=== PATIENT | female | born 1955 | race Caucasian/White ===

== ENCOUNTER 2017-03-25 17:26 | Emergency (ER) | payer OTHER ==
[~2017-03-25] VITALS: Ht 162.6 cm; Wt 80.7 kg
[2017-03-25 18:47] VITALS: BP 146/95
== END 2017-03-25 19:53 | disposition home or self-care (01) ==
LOC: ER 17:33
DX: S93.402A Sprain of unspecified ligament of left ankle, initial encounter (principal); F17.210 Nicotine dependence, cigarettes, uncomplicated; Z88.0 Allergy status to penicillin; Z88.1 Allergy status to other antibiotic agents; W01.0XXA Fall on same level from slipping, tripping and stumbling without subsequent striking against object, initial encounter; Y93.89 Activity, other specified; Y92.89 Other specified places as the place of occurrence of the external cause; Y99.8 Other external cause status
CPT/HCPCS: 29515; 73610

== ENCOUNTER 2021-05-30 15:15 | Inpatient (IN) | payer OTHER, MEDICAID ==
[~2021-05-30] VITALS: Ht 160 cm; Wt 88.5 kg
[~2021-05-30 15:15] MED LIST: FLUT110A INH; MET25T GT; MUPI2OIN10 EACHNOSTRI; PERCOT PO; QUET50TA PO
[2021-05-30] MEDS ORDERED: methylPREDNISolone SOD SUCC 125 MG/2 ML VL ONE (15:22)
[2021-05-30] MEDS ORDERED: ETOMIDATE (2MG/ML) 20ML VIAL IV ONE (15:30)
[2021-05-30] MEDS ORDERED: ALBUTEROL SULF 2.5 MG/0.5ML(0.5%) NEB SOLN NEB ONE (15:30)
[2021-05-30] MEDS ORDERED: IPRATROPIUM BROM 0.5 MG/2.5ML INH SOL NEB ONE (15:30)
[2021-05-30] MEDS ORDERED: ROCURONIUM 10MG/ML 10ML VIAL IV ONE (15:30)
[2021-05-30] MEDS ORDERED: methylPREDNISolone SOD SUCC 125 MG/2 ML VL IV ONE (15:30)
[2021-05-30] MEDS ORDERED: MIDAZOLAM DRIP 50 mg/50mL 50 ML IV ONE (15:39)
[2021-05-30] MEDS: MIDAZOLAM DRIP 50 mg/50mL 50 ML IV SCH ×2 (15:49→18:43)
[2021-05-30 16:15] LABS: Basophils # (auto) 0.1 10 ^3/uL (0-0.2); Basophils % (auto) 0.4 % (0.0-2.0); Eosinophils # (auto) 0 10 ^3/uL (0-0.8); Eosinophils % (auto) 0.2 % (0.0-7.0); Hematocrit 39.7 % (36.0-46.0); Hemoglobin 12.4 g/dL (12.2-16.2); Lymphocytes # (auto) 1.2 10 ^3/uL (0.4-5.4); Lymphocytes % (auto) 8.3 % (10.0-50.0); Mean Corpuscular Hemoglobin 29.1 pg (28.0-32.0); Mean Corpuscular Hgb Conc. 31.2 g/dL (32.0-36.0); Mean Corpuscular Volume 93.4 fL (80.0-100.0); Monocytes # (auto) 0.7 10 ^3/uL (0-1.3); Monocytes % (auto) 5.2 % (0.0-12.0); Neutrophils % (auto) 85.9 % (37.0-80.0); Nucleated Red Blood Cells % 0.4 %; Red Blood Cells 4.25 10^6/uL (4.0-5.20); Red Cell Distribution Width 16.8 % (11.8-14.3)
[2021-05-30 16:21] LABS: Albumin 3.2 g/dL (3.4-5.0); BUN/Creatinine Ratio 18.6; Calcium 8.8 mg/dL (8.5-10.1)
[2021-05-30] MEDS: MAGNESIUM SULFATE 1GM/100ML 100 ML IV SCH ×2 (16:30→18:34)
[2021-05-30 16:32] LABS: Bilirubin, Total 0.3 mg/dL (0.2-1.0); Total Protein 7.2 g/dL (6.4-8.2)
[2021-05-30 16:37] LABS: Urine Bacteria NONE SEEN /hpf (None Seen); Urine Blood Negative /uL (Negative); Urine Hyaline Cast FEW /lpf (0 - 2); Urine Mucus FEW (None Seen); Urine Specific Gravity 1.021 (1.001-1.035); Urine WBC 8 /hpf (0 - 5)
[2021-05-30] MEDS ORDERED: fentaNYL Drip 2500mCg/250mlNS 250 ML IV ONE (16:47)
[2021-05-30] MEDS ORDERED: PROPOFOL 100 ML IV ONE (16:51)
[2021-05-30] MEDS: fentaNYL Drip 2500mCg/250mlNS 250 ML IV SCH (16:57)
[2021-05-30 17:03] VITALS: BP 128/77
[2021-05-30] MEDS: PROPOFOL 100 ML IV SCH (17:20)
[2021-05-30 20:17] VITALS: BP 122/70
[2021-05-30] MEDS ORDERED: NITROGLYCERIN 0.4 MG SL TAB SL PRN (21:15)
[2021-05-30] MEDS ORDERED: ONDANSETRON HCL 4 MG/2 ML VIAL IV PRN (21:15)
[2021-05-30] MEDS ORDERED: MORPHINE SULFATE INJECTION 2 MG/ML SYRG IV PRN (21:15)
[2021-05-30] MEDS ORDERED: D5W/SOD CHLO 0.9% 1,000 ML IV SCH (21:15)
[2021-05-30 22:12] VITALS: BP 109/66
[2021-05-30 23:10] VITALS: BP 122/66
[2021-05-31] VITALS (104 sets, daily range): BP systolic 95–130; BP diastolic 39–73
[2021-05-31] MEDS: PROPOFOL 100 ML IV SCH ×4 (01:00→20:44)
[2021-05-31] MEDS: IPRATROPIUM BROM 0.5 MG/2.5ML INH SOL NEB PRN (01:43)
[2021-05-31] MEDS: ALBUTEROL SULF 2.5 MG/0.5ML(0.5%) NEB SOLN NEB PRN (01:43)
[2021-05-31] MEDS: MIDAZOLAM DRIP 50 mg/50mL 50 ML IV SCH ×3 (04:00→22:15)
[2021-05-31 04:20] LABS: Basophils # (auto) 0 10 ^3/uL (0-0.2); Basophils % (auto) 0.1 % (0.0-2.0); Eosinophils # (auto) 0 10 ^3/uL (0-0.8); Eosinophils % (auto) 0.1 % (0.0-7.0); Hematocrit 33.8 % (36.0-46.0); Hemoglobin 10.9 g/dL (12.2-16.2); Lymphocytes # (auto) 0.4 10 ^3/uL (0.4-5.4); Lymphocytes % (auto) 6.6 % (10.0-50.0); Mean Corpuscular Hemoglobin 29.4 pg (28.0-32.0); Mean Corpuscular Hgb Conc. 32.1 g/dL (32.0-36.0); Mean Corpuscular Volume 91.7 fL (80.0-100.0); Monocytes # (auto) 0.1 10 ^3/uL (0-1.3); Monocytes % (auto) 1.2 % (0.0-12.0); Nucleated Red Blood Cells % 0.2 %; Red Blood Cells 3.69 10^6/uL (4.0-5.20); Red Cell Distribution Width 16.2 % (11.8-14.3); White Blood Cell 6.5 10^3/uL (4.4-10.8)
[2021-05-31 04:22] LABS: Albumin 2.7 g/dL (3.4-5.0); Calcium 8.2 mg/dL (8.5-10.1); Potassium 4.2 mmol/L (3.5-5.1)
[2021-05-31 04:25] LABS: Bilirubin, Total 0.4 mg/dL (0.2-1.0); Total Protein 5.9 g/dL (6.4-8.2)
[2021-05-31] MEDS: fentaNYL Drip 2500mCg/250mlNS 250 ML IV SCH (08:42)
[2021-05-31] MEDS: PANTOPRAZOLE 40 MG/10 ML VIAL INJ IV SCH (09:04)
[2021-05-31] MEDS: ENOXAPARIN SOD 40 MG/0.4 ML SYRINGE SC SCH (09:05)
[2021-05-31 09:40] LABS: Alcohol, Urine < 3.0 mg/dL (0-10); Amphetamine Screen, Urine POSITIVE (NEGATIVE); Barbiturate Scree,Urine NEGATIVE (NEGATIVE); Benzodiazephine Screen, Urine NEGATIVE (NEGATIVE); Cannabinoid Screen, Urine NEGATIVE (NEGATIVE); Cocaine Screen, Urine NEGATIVE (NEGATIVE); Opiate Scree,Urine NEGATIVE (NEGATIVE); Phencyclidine Screen, Urine NEGATIVE (NEGATIVE)
[2021-05-31] MEDS ORDERED: methylPREDNISolone SOD SUCC 125 MG/2 ML VL IV ONE (14:30)
[2021-05-31] MEDS ORDERED: AZITHROMYCIN 500MG/ 250ML 250 ML IV ONE (14:30)
[2021-05-31] MEDS ORDERED: THIAMINE 100mg/ml INJ (200mg/2ml VIAL) IV ONE (14:30)
[2021-05-31] MEDS ORDERED: cefTRIAXone 1GM/50ML D5W 50 ML IV ONE (14:30)
[2021-05-31] MEDS: DOXYCYCLINE 100MG/250ML 250 ML IV SCH (15:19)
[2021-05-31] MEDS: methylPREDNISolone SOD SUCC 40 MG/ML VL IV SCH (22:15)
[2021-06-01] VITALS (104 sets, daily range): BP systolic 94–133; BP diastolic 44–91
[2021-06-01] MEDS: PROPOFOL 100 ML IV SCH ×6 (01:46→22:25)
[2021-06-01] MEDS: fentaNYL Drip 2500mCg/250mlNS 250 ML IV SCH ×2 (01:51→21:36)
[2021-06-01] MEDS: DOXYCYCLINE 100MG/250ML 250 ML IV SCH ×2 (03:11→14:57)
[2021-06-01 04:24] LABS: Basophils # (auto) 0 10 ^3/uL (0-0.2); Basophils % (auto) 0.4 % (0.0-2.0); Eosinophils # (auto) 0 10 ^3/uL (0-0.8); Hematocrit 37.1 % (36.0-46.0); Lymphocytes # (auto) 0.6 10 ^3/uL (0.4-5.4); Mean Corpuscular Hemoglobin 29.2 pg (28.0-32.0); Mean Corpuscular Hgb Conc. 32.5 g/dL (32.0-36.0); Monocytes # (auto) 0.1 10 ^3/uL (0-1.3); Monocytes % (auto) 1.6 % (0.0-12.0); Neutrophils # (auto) 5.5 10 ^3/uL (1.6-8.6); Nucleated Red Blood Cells % 0.2 %; Red Blood Cells 4.12 10^6/uL (4.0-5.20); Red Cell Distribution Width 16.8 % (11.8-14.3); White Blood Cell 6.3 10^3/uL (4.4-10.8)
[2021-06-01 04:37] LABS: INR 1.07 (0.9-1.15); Partial Thromboplastin Time 20.3 sec (23.6-33.0)
[2021-06-01 04:38] LABS: Albumin 2.9 g/dL (3.4-5.0); Calcium 8.6 mg/dL (8.5-10.1); Potassium 4.1 mmol/L (3.5-5.1)
[2021-06-01 04:41] LABS: BUN/Creatinine Ratio 22.9
[2021-06-01 04:44] LABS: Bilirubin, Total 0.3 mg/dL (0.2-1.0); Total Protein 6.6 g/dL (6.4-8.2)
[2021-06-01] MEDS: MIDAZOLAM DRIP 50 mg/50mL 50 ML IV SCH ×3 (06:25→21:34)
[2021-06-01] MEDS ORDERED: cefTRIAXone 1GM/50ML D5W 50 ML IV SCH (09:00)
[2021-06-01] MEDS ORDERED: AZITHROMYCIN 500MG/ 250ML 250 ML IV SCH (10:00)
[2021-06-01] MEDS: THIAMINE 100mg/ml INJ (200mg/2ml VIAL) IV SCH (10:36)
[2021-06-01] MEDS: ENOXAPARIN SOD 40 MG/0.4 ML SYRINGE SC SCH (10:37)
[2021-06-01] MEDS: PANTOPRAZOLE 40 MG/10 ML VIAL INJ IV SCH (10:37)
[2021-06-01] MEDS: methylPREDNISolone SOD SUCC 40 MG/ML VL IV SCH ×2 (10:37→21:38)
[2021-06-01] MEDS ORDERED: FUROSEMIDE 40 MG/4 ML VIAL IV ONE (15:30)
[2021-06-02] VITALS (76 sets, daily range): BP systolic 94–166; BP diastolic 50–102
[2021-06-02] MEDS: PROPOFOL 100 ML IV SCH ×2 (01:44→06:01)
[2021-06-02] MEDS: DOXYCYCLINE 100MG/250ML 250 ML IV SCH ×2 (03:12→15:26)
[2021-06-02] MEDS: IPRATROPIUM BROM 0.5 MG/2.5ML INH SOL NEB PRN ×2 (04:14→15:54)
[2021-06-02] MEDS: ALBUTEROL SULF 2.5 MG/0.5ML(0.5%) NEB SOLN NEB PRN ×2 (04:14→15:54)
[2021-06-02 05:33] LABS: Calcium 8.3 mg/dL (8.5-10.1); Potassium 3.3 mmol/L (3.5-5.1)
[2021-06-02 05:45] LABS: BUN/Creatinine Ratio 36.1
[2021-06-02] MEDS ORDERED: POTASSIUM CHL 20MEQ/100ML 100 ML IV ONE ×2 (06:40→06:45)
[2021-06-02] MEDS: ENOXAPARIN SOD 40 MG/0.4 ML SYRINGE SC SCH (09:40)
[2021-06-02] MEDS: THIAMINE 100mg/ml INJ (200mg/2ml VIAL) IV SCH (09:40)
[2021-06-02] MEDS: methylPREDNISolone SOD SUCC 40 MG/ML VL IV SCH ×2 (09:41→21:36)
[2021-06-02] MEDS: FUROSEMIDE 40 MG/4 ML VIAL IV SCH (09:41)
[2021-06-02] MEDS: PANTOPRAZOLE 40 MG/10 ML VIAL INJ IV SCH (10:35)
[2021-06-02] MEDS ORDERED: FUROSEMIDE 20 MG/2 ML VIAL ONE (13:08)
[2021-06-02] MEDS ORDERED: FUROSEMIDE 20 MG/2 ML VIAL IV ONE ×2 (13:15→14:15)
[2021-06-02] MEDS: POTASSIUM CHL 20MEQ/100ML 100 ML IV SCH ×2 (15:26→17:15)
[2021-06-02] MEDS: LORazepam 2MG/ML-1ML VIAL IV PRN (16:01)
[2021-06-02] MEDS: ACETAMINOPHEN 325 MG TAB PO PRN (22:31)
[2021-06-03] VITALS (10 sets, daily range): BP systolic 142–160; BP diastolic 76–93
[2021-06-03] MEDS: LORazepam 2MG/ML-1ML VIAL IV PRN ×2 (00:07→12:16)
[2021-06-03] MEDS: DOXYCYCLINE 100MG/250ML 250 ML IV SCH ×2 (02:40→17:12)
[2021-06-03 07:12] LABS: Basophils # (auto) 0 10 ^3/uL (0-0.2); Basophils % (auto) 0.3 % (0.0-2.0); Eosinophils # (auto) 0 10 ^3/uL (0-0.8); Eosinophils % (auto) 0.1 % (0.0-7.0); Hematocrit 40.2 % (36.0-46.0); Hemoglobin 12.9 g/dL (12.2-16.2); Lymphocytes # (auto) 0.3 10 ^3/uL (0.4-5.4); Lymphocytes % (auto) 5.8 % (10.0-50.0); Mean Corpuscular Hemoglobin 28.9 pg (28.0-32.0); Mean Corpuscular Hgb Conc. 32.2 g/dL (32.0-36.0); Monocytes # (auto) 0.5 10 ^3/uL (0-1.3); Monocytes % (auto) 8.2 % (0.0-12.0); Neutrophils # (auto) 5.1 10 ^3/uL (1.6-8.6); Neutrophils % (auto) 85.6 % (37.0-80.0); Nucleated Red Blood Cells % 0.1 %; Red Blood Cells 4.47 10^6/uL (4.0-5.20); White Blood Cell 5.9 10^3/uL (4.4-10.8)
[2021-06-03 07:26] LABS: Calcium 8.4 mg/dL (8.5-10.1); Potassium 3.2 mmol/L (3.5-5.1)
[2021-06-03] MEDS: THIAMINE 100mg/ml INJ (200mg/2ml VIAL) IV SCH (10:51)
[2021-06-03] MEDS: ENOXAPARIN SOD 40 MG/0.4 ML SYRINGE SC SCH (10:51)
[2021-06-03] MEDS: FUROSEMIDE 40 MG/4 ML VIAL IV SCH (10:52)
[2021-06-03] MEDS: methylPREDNISolone SOD SUCC 40 MG/ML VL IV SCH (10:52)
[2021-06-03] MEDS: PANTOPRAZOLE 40 MG/10 ML VIAL INJ IV SCH (10:52)
[2021-06-03] MEDS ORDERED: POTASSIUM CHL 20 Meq TABLET PO ONE (13:15)
[2021-06-03] MEDS: IPRATROPIUM BROM 0.5 MG/2.5ML INH SOL NEB PRN ×2 (14:18→19:06)
[2021-06-03] MEDS: ALBUTEROL SULF 2.5 MG/0.5ML(0.5%) NEB SOLN NEB PRN ×2 (14:18→19:06)
[2021-06-03] MEDS: HYDROcodone-ACET 5/325MG TAB PO PRN ×2 (17:12→23:26)
[2021-06-03] MEDS: ACETAMINOPHEN 325 MG TAB PO PRN (19:42)
[2021-06-04] MEDS: DOXYCYCLINE 100MG/250ML 250 ML IV SCH (03:18)
[2021-06-04] MEDS: ALBUTEROL SULF 2.5 MG/0.5ML(0.5%) NEB SOLN NEB PRN ×4 (03:27→19:29)
[2021-06-04] MEDS: IPRATROPIUM BROM 0.5 MG/2.5ML INH SOL NEB PRN ×4 (03:27→19:29)
[2021-06-04] MEDS: ACETAMINOPHEN 325 MG TAB PO PRN (03:41)
[2021-06-04 05:00] VITALS: BP 142/88
[2021-06-04] MEDS: HYDROcodone-ACET 5/325MG TAB PO PRN ×4 (06:36→22:20)
[2021-06-04 09:00] VITALS: BP 139/91
[2021-06-04] MEDS: predniSONE 20 MG TAB PO SCH (09:46)
[2021-06-04] MEDS: FUROSEMIDE 40 MG TAB PO SCH (09:46)
[2021-06-04] MEDS: POTASSIUM CHL 20 Meq TABLET PO SCH (09:46)
[2021-06-04] MEDS: ENOXAPARIN SOD 40 MG/0.4 ML SYRINGE SC SCH (09:46)
[2021-06-04 13:00] VITALS: BP 134/84
[2021-06-04] MEDS: clonazePAM 0.5 MG TAB PO PRN (13:55)
[2021-06-04 17:00] VITALS: BP 140/88
[2021-06-04 22:00] VITALS: BP 148/84
[2021-06-04] MEDS: QUEtiapine FUMARATE 100 MG TAB PO SCH (22:04)
[2021-06-05 05:00] VITALS: BP 107/60
[2021-06-05] MEDS: HYDROcodone-ACET 5/325MG TAB PO PRN ×2 (05:18→09:14)
[2021-06-05 06:15] LABS: Calcium 8.5 mg/dL (8.5-10.1); Potassium 3.4 mmol/L (3.5-5.1)
[2021-06-05] MEDS: IPRATROPIUM BROM 0.5 MG/2.5ML INH SOL NEB PRN ×2 (07:04→20:34)
[2021-06-05] MEDS: ALBUTEROL SULF 2.5 MG/0.5ML(0.5%) NEB SOLN NEB PRN ×2 (07:04→20:34)
[2021-06-05] MEDS: clonazePAM 0.5 MG TAB PO PRN ×2 (07:28→20:56)
[2021-06-05 09:00] VITALS: BP 116/68
[2021-06-05] MEDS: levoFLOXacin 500 MG TAB PO SCH (09:46)
[2021-06-05] MEDS: POTASSIUM CHL 20 Meq TABLET PO SCH (09:46)
[2021-06-05] MEDS: predniSONE 20 MG TAB PO SCH (09:46)
[2021-06-05] MEDS: FUROSEMIDE 40 MG TAB PO SCH (09:47)
[2021-06-05] MEDS: ENOXAPARIN SOD 40 MG/0.4 ML SYRINGE SC SCH (10:00)
[2021-06-05 13:00] VITALS: BP 179/119
[2021-06-05] MEDS: HYDROcodone-ACET 7.5/325MG TAB PO PRN ×2 (14:09→20:07)
[2021-06-05 17:00] VITALS: BP 139/91
[2021-06-05 22:00] VITALS: BP 125/80
[2021-06-05] MEDS: QUEtiapine FUMARATE 100 MG TAB PO SCH (22:21)
[2021-06-06 02:01] VITALS: BP 138/85
[2021-06-06] MEDS: HYDROcodone-ACET 7.5/325MG TAB PO PRN ×4 (04:23→23:33)
[2021-06-06 05:00] VITALS: BP 123/78
[2021-06-06 07:50] VITALS: BP 128/76
[2021-06-06] MEDS: predniSONE 20 MG TAB PO SCH (09:56)
[2021-06-06] MEDS: FUROSEMIDE 40 MG TAB PO SCH (09:57)
[2021-06-06] MEDS: POTASSIUM CHL 20 Meq TABLET PO SCH (09:57)
[2021-06-06] MEDS: levoFLOXacin 500 MG TAB PO SCH (09:57)
[2021-06-06] MEDS: ENOXAPARIN SOD 40 MG/0.4 ML SYRINGE SC SCH (09:58)
[2021-06-06] MEDS: ALBUTEROL SULF 2.5 MG/0.5ML(0.5%) NEB SOLN NEB PRN (10:24)
[2021-06-06] MEDS: IPRATROPIUM BROM 0.5 MG/2.5ML INH SOL NEB PRN ×2 (10:24→14:52)
[2021-06-06 12:00] VITALS: BP 116/68
[2021-06-06 16:00] VITALS: BP 129/79
[2021-06-06] MEDS: clonazePAM 0.5 MG TAB PO PRN (16:17)
[2021-06-06] MEDS: QUEtiapine FUMARATE 100 MG TAB PO SCH (21:48)
[2021-06-06 22:00] VITALS: BP 132/75
[2021-06-07] MEDS: IPRATROPIUM BROM 0.5 MG/2.5ML INH SOL NEB PRN ×3 (03:41→19:06)
[2021-06-07] MEDS: ALBUTEROL SULF 2.5 MG/0.5ML(0.5%) NEB SOLN NEB PRN ×3 (03:41→19:06)
[2021-06-07 05:00] VITALS: BP 104/66
[2021-06-07 09:00] VITALS: BP 106/68
[2021-06-07] MEDS: POTASSIUM CHL 20 Meq TABLET PO SCH (09:31)
[2021-06-07] MEDS: predniSONE 20 MG TAB PO SCH (09:31)
[2021-06-07] MEDS: FUROSEMIDE 40 MG TAB PO SCH (09:32)
[2021-06-07] MEDS: ENOXAPARIN SOD 40 MG/0.4 ML SYRINGE SC SCH (09:33)
[2021-06-07] MEDS: clonazePAM 0.5 MG TAB PO PRN (09:34)
[2021-06-07] MEDS: HYDROcodone-ACET 7.5/325MG TAB PO PRN ×3 (09:34→22:07)
[2021-06-07] MEDS: levoFLOXacin 500 MG TAB PO SCH (09:44)
[2021-06-07 12:51] VITALS: BP 118/80
[2021-06-07 17:00] VITALS: BP 128/82
[2021-06-07 22:00] VITALS: BP 142/85
[2021-06-07] MEDS: QUEtiapine FUMARATE 100 MG TAB PO SCH (22:06)
[2021-06-08] MEDS: HYDROcodone-ACET 7.5/325MG TAB PO PRN ×2 (04:07→10:53)
[2021-06-08 05:00] VITALS: BP 113/74
[2021-06-08 09:00] VITALS: BP 119/74
[2021-06-08] MEDS: ALBUTEROL SULF 2.5 MG/0.5ML(0.5%) NEB SOLN NEB PRN ×3 (09:06→14:50)
[2021-06-08] MEDS: IPRATROPIUM BROM 0.5 MG/2.5ML INH SOL NEB PRN ×3 (09:07→14:50)
[2021-06-08] MEDS: predniSONE 20 MG TAB PO SCH (10:53)
[2021-06-08] MEDS: levoFLOXacin 500 MG TAB PO SCH (10:54)
[2021-06-08] MEDS: FUROSEMIDE 40 MG TAB PO SCH (10:54)
[2021-06-08] MEDS: POTASSIUM CHL 20 Meq TABLET PO SCH (10:54)
[2021-06-08] MEDS: ENOXAPARIN SOD 40 MG/0.4 ML SYRINGE SC SCH (10:55)
[2021-06-08 13:00] VITALS: BP 115/86
[2021-06-08 14:19] VITALS: BP 115/86
== END 2021-06-08 16:45 | DRG 208 ==
LOC: EDBD 15:15 → ER 15:15 → TELE 21:03 → ICU WEST 23:00 → TELE-WESTW 06-03 11:22
PROVIDERS: ADMIT Nurse Practitioner; ATTEND Internal Medicine
PROC: 5A1945Z Respiratory Ventilation, 24-96 Consecutive Hours (ICD-10-PCS; principal; 2021-05-30)
PROC: 0BH17EZ Insertion of Endotracheal Airway into Trachea, Via Natural or Artificial Opening (ICD-10-PCS; 2021-05-30)
PROC: 5A09357 Assistance with Respiratory Ventilation, Less than 24 Consecutive Hours, Continuous Positive Airway Pressure (ICD-10-PCS; 2021-05-30)
PROC: 05HD33Z Insertion of Infusion Device into Right Cephalic Vein, Percutaneous Approach (ICD-10-PCS; 2021-05-31)
PROC: B54MZZA Ultrasonography of Right Upper Extremity Veins, Guidance (ICD-10-PCS; 2021-05-31)
DX: J96.21 Acute and chronic respiratory failure with hypoxia (principal); J15.6 Pneumonia due to other Gram-negative bacteria; I50.41 Acute combined systolic (congestive) and diastolic (congestive) heart failure; J44.1 Chronic obstructive pulmonary disease with (acute) exacerbation; E44.0 Moderate protein-calorie malnutrition; J44.0 Chronic obstructive pulmonary disease with (acute) lower respiratory infection; J96.22 Acute and chronic respiratory failure with hypercapnia; E66.01 Morbid (severe) obesity due to excess calories; F11.10 Opioid abuse, uncomplicated; F15.10 Other stimulant abuse, uncomplicated; F41.9 Anxiety disorder, unspecified; G89.29 Other chronic pain; F17.210 Nicotine dependence, cigarettes, uncomplicated; Z93.0 Tracheostomy status; Z88.1 Allergy status to other antibiotic agents; Z88.0 Allergy status to penicillin; Z68.35 Body mass index [BMI] 35.0-35.9, adult; Z71.6 Tobacco abuse counseling; Z71.51 Drug abuse counseling and surveillance of drug abuser
CPT/HCPCS: 36415; 36600; 71045; 80048; 80053; 80307; 81001; 82805; 82962; 83880; 84484; 85025; 85610; 85730; 87070; 87077; 87081; 87186; 87205; 93005; 93306; 94002; 94003; 94640; 94660; 96361; 96374; 97110; 97116; 97163; 97530; 99291; C9113; G0378; J2250; J2704; J3480; J3490; J7060